=== PATIENT | male | born 1975 | race Caucasian/White ===

== ENCOUNTER 2022-01-23 21:37 | Emergency (ER) | payer OTHER ==
[~2022-01-23] VITALS: Ht 177.8 cm; Wt 99.8 kg
[2022-01-23] MEDS ORDERED: BENADYL (21:47)
== END 2022-01-23 22:57 | disposition home or self-care (01) ==
LOC: ER 21:37
DX: T78.40XA Allergy, unspecified, initial encounter (principal)